=== PATIENT | female | born 1950 | race Asian ===

== ENCOUNTER 2017-07-15 07:02 | Day surgery (SDC) | payer MEDICARE, OTHER ==
[2017-07-14 10:47] VITALS: BMI 25.3
[2017-07-15] MEDS ORDERED: Oxymetazoline HCl 0.05% ( 15 ML ) ONE (09:42)
[2017-07-15 09:53] LABS: Hematocrit 47.4 % (36.0-47.0)
[2017-07-15 10:11] LABS: Anion Gap 11 mmol/L (10-20); BUN (Urea Nitrogen) 15 mg/dL (9.8-20.1); Calc. Creatinine Clearance 62 mL/min (70-130); Calcium 9.4 mg/dL (7.8-10.44); Carbon Dioxide 26 mmol/L (23-31); Chloride 108 mmol/L (98-107); Estimated GFR-MDRD 83
[2017-07-15] MEDS ORDERED: Fentanyl 100 MCG/2 ML VIAL ONE (10:27)
[2017-07-15] MEDS ORDERED: Midazolam HCl 2 mg/2 ml Vial ONE (10:27)
[2017-07-15] MEDS ORDERED: Lidocaine 1% w/Epinephrine 1:200K 30 ML VIAL ONE (10:48)
[2017-07-15] MEDS ORDERED: Propofol 200 MG/20 ML VIAL ONE (15:40)
[2017-07-15] MEDS ORDERED: Lidocaine 1% PF 5 ML VIAL ONE (15:40)
[2017-07-15] MEDS ORDERED: Dexamethasone 20 MG/5 ML VIAL ONE (15:40)
[2017-07-15] MEDS ORDERED: Ondansetron HCl/PF 4 MG/2 ML Vial ONE (15:40)
[2017-07-15] MEDS ORDERED: Glycopyrrolate 0.2 MG/ML 5 ML SYRINGE ONE (15:40)
--- NOTE | 2017-07-16 11:06 | OP ---
PREOPERATIVE DIAGNOSES: 1. Chronic rhinosinusitis. 2. Bilateral inferior turbinate hypertrophy. 3. Right middle turbinate michelle bullosa. POSTOPERATIVE DIAGNOSES: 1. Chronic rhinosinusitis. 2. Bilateral inferior turbinate hypertrophy. 3. Right middle turbinate michelle bullosa. PROCEDURES: 1. Bilateral endoscopic sinus surgery, total ethmoidectomies. 2. Bilateral endoscopic sinus surgery, maxillary antrostomies. 3. Bilateral endoscopic sinus surgery, frontal sinusotomies. 4. Right endoscopic sinus surgery 5. Bilateral inferior turbinate submucosal coblation. SURGEON: Dr. Ganga Baum M.D. ESTIMATED BLOOD LOSS: 20 mL. COMPLICATIONS: None. ANESTHESIA: GETA. PROCEDURE: The patient was taken to the operating room and placed supine on the table. General endo tracheal anesthesia was obtained by the Anesthesia staff. Tube was secured in the left lower lip. T he patient was then placed in the beach chair position, and Afrin pledgets were placed in the nasal c avity, using the 0 degree scope. The patient was then prepped and draped for standard nasal procedur e. Following this, the 0 degree scope was advanced in the nasal cavity. 1% lidocaine with 1:100,000 epinephrine was injected via a 27 gauge needle into the inferior turbinates, middle turbinates, and lateral nasal wall. Following this, a large right middle turbinate michelle bullosa was vertically inc ised with a sickle knife on the anterior aspect. A straight Blakesley forceps was then inserted into the michelle bullosa to expand and further fracture between che. The lateral wall of the michelle bul losa was then resected using the straight Blakesley forceps and straight microdebrider. Following th is, the uncinate using the ball-ended probe. The uncinate was then removed using a microdebrid er and the upbiting Blakesley forceps. Following this, the maxillary sinus ostia was identified with a ball-ended probe and gently widened using the straight microdebrider and straight Blakesley forcep s. Following this, the ethmoidal bulla was identified and was punctured on its medial and inferior a spect and was removed using the microdebrider. The grand lamella was identified and was punctured in to the posterior ethmoidal cells. Working from posterior to anterior, the ethmoidal cells were opene d in a mucosal-sparing technique. Following this, the frontal sinus ostea were visualized using the 45-degree scope and the 40-degree curved microdebrider. The frontal sinus recess and frontal sinus o stia was removed, it was opened using the microdebrider. Following this, the nasal cavity was irriga jessika. MeroPacks were placed within the middle meatus. Following this, the inferior turbinates were t hen punctured on the anterior inferior aspect and submucosal coblation was performed of the anterior inferior aspect of the inferior turbinates bilaterally. Patient tolerated the procedure well.
== END 2017-07-15 12:50 | disposition home or self-care (01) ==
LOC: SDC 07:02
PROVIDERS: ATTEND Otolaryngology Plastic Surgery within the Head & Neck
PROC: 099R8ZZ Drainage of Left Maxillary Sinus, Via Natural or Artificial Opening Endoscopic (ICD-10-PCS; principal; 2017-07-15)
PROC: 099Q8ZZ Drainage of Right Maxillary Sinus, Via Natural or Artificial Opening Endoscopic (ICD-10-PCS; 2017-07-15)
PROC: 09TL8ZZ Resection of Nasal Turbinate, Via Natural or Artificial Opening Endoscopic (ICD-10-PCS; 2017-07-15)
PROC: 09TV8ZZ Resection of Left Ethmoid Sinus, Via Natural or Artificial Opening Endoscopic (ICD-10-PCS; 2017-07-15)
PROC: 09TU8ZZ Resection of Right Ethmoid Sinus, Via Natural or Artificial Opening Endoscopic (ICD-10-PCS; 2017-07-15)
PROC: 09BT4ZZ Excision of Left Frontal Sinus, Percutaneous Endoscopic Approach (ICD-10-PCS; 2017-07-15)
PROC: 09BS4ZZ Excision of Right Frontal Sinus, Percutaneous Endoscopic Approach (ICD-10-PCS; 2017-07-15)
DX: J32.9 Chronic sinusitis, unspecified (principal); J30.9 Allergic rhinitis, unspecified; J34.9 Unspecified disorder of nose and nasal sinuses; J34.3 Hypertrophy of nasal turbinates; Z79.899 Other long term (current) drug therapy; Z79.51 Long term (current) use of inhaled steroids; Z79.01 Long term (current) use of anticoagulants; Z88.8 Allergy status to other drugs, medicaments and biological substances; Z98.890 Other specified postprocedural states
CPT/HCPCS: 80048; 85014; 85018; 93005; 93010; J0131; J1100; J2001; J2250; J2405; J2704; J3010

== ENCOUNTER 2017-07-28 22:52 | Observation (INO) | payer MEDICARE, OTHER ==
[2017-07-28 23:27] LABS: #Basophils 0.1 thou/uL (0.0-0.2); #Eosinphils 0.4 thou/uL (0.0-0.7); #Lymphocytes 2.7 thou/uL (1.20-3.40); #Monocytes 1.4 thou/uL (0.11-0.59); #Neutrophils 7.2 thou/uL (1.40-6.50); %Basophils 0.4 % (0.0-1.0); %Eosinophils 3.1 % (0.0-10.0); %Lymphocytes 23.2 % (21.0-51.0); Hematocrit 40.7 % (36.0-47.0); Red Blood Cell (RBC) Count 4.42 mill/uL (4.20-5.40); White Blood Cell (WBC) Count 11.7 thou/uL (4.8-10.8)
[2017-07-28 23:36] LABS: PTT 33.4 SEC (22.9-36.1); Prothrombin Time 13.5 SEC (12.0-14.7)
[2017-07-28] MEDS ORDERED: Acetaminophen 500 MG TAB ONE (23:44)
[2017-07-28 23:48] LABS: ALT (SGPT) 35 U/L (8-55); AST (SGOT) 19 U/L (5-34); Alkaline Phosphatase 220 U/L (40-150); Anion Gap 13 mmol/L (10-20); BUN (Urea Nitrogen) 13 mg/dL (9.8-20.1); Bilirubin, Total 0.5 mg/dL (0.2-1.2); Calc. Creatinine Clearance 0 mL/min (70-130); Calcium 9.2 mg/dL (7.8-10.44); Carbon Dioxide 25 mmol/L (23-31); Chloride 106 mmol/L (98-107); Estimated GFR-MDRD 77; Protein, Total 7.9 g/dL (6.0-8.3)
[2017-07-29] MEDS ORDERED: Morphine 4 MG/ML VIAL SLOW IVP PRN (02:20)
[2017-07-29] MEDS ORDERED: Ondansetron HCl/PF 4 MG/2 ML Vial IVP PRN ×2 (02:21→08:39)
[2017-07-29] MEDS ORDERED: Acetaminophen 325 MG TAB PO PRN ×2 (02:21→08:39)
[2017-07-29] MEDS ORDERED: Ondansetron ODT 4 MG TAB SL PRN (02:21)
[2017-07-29 03:01] VITALS: BMI 23.3
[2017-07-29] MEDS ORDERED: Sodium Chloride 0.65% Nasal 44 ML BOT L NARE PRN (03:40)
[2017-07-29 06:17] LABS: Hematocrit 37.4 % (36.0-47.0)
[2017-07-29 07:55] VITALS: BP 143/67; TEMP 98
--- NOTE | 2017-07-29 08:19 | CON ---
DATE OF CONSULTATION: 07/29/2017 REASON FOR CONSULTATION: Epistaxis. CONSULTING PHYSICIAN: Dr. Astrid Hodges. HISTORY OF PRESENT ILLNESS: Ms. Pulido is a 67-year-old female who is status post nasal surgery on the . She was unable to tell me exactly what was performed during that surgery other than it wa s some sinus surgery for chronic infection. She was on Eliquis prior to the surgery for atrial fibri llation and stopped it before the surgery and for a week afterwards, but towards the end of last week , started back on her Eliquis and started having epistaxis. She presented to the ER this morning wit h epistaxis and had a pack placed in the right nostril. She presented again to the ER this evening w ith the packing in place and continued bleeding around it and was transferred here for further evalua tion and treatment. She complains of pain. She denies any fever, vision problems, or blood going do wn the back of throat. Please see her admission ER notes for further details for past medical histor y and review of systems as reviewed on this date. PHYSICAL EXAMINATION: HEENT: She has a packing in place and inflated in the right naris with some blood and mucus weeping around the packing. No adenike bleeding was noted. On the left side, she had some combination of bloo d and mucus that was suctioned clear, no active bleeding was noted. Oral cavity and oropharynx showe d a little bit of blood staining in the throat, but no active bleeding was noted in the throat. ASSESSMENT AND PLAN: I recommended observation overnight since she travelled such a distance to get here and we will have Dr. Baum see her in the morning to determine if he wants to do any further tr eatment. Meanwhile, continue off the Eliquis to keep her head elevated, avoid blowing her nose, snee zes with her mouth open. Put her on Augmentin to try and prevent infection from the packing and sali ne spray in the left nostril to keep it clean after and as needed and controlled her pain with pain m edications. FOLLOWUP: We will have Dr. Baum to see her in the morning and determine further treatment.
[2017-07-29] MEDS ORDERED: Ondansetron ODT 4 MG TAB PO PRN (08:39)
[2017-07-29] MEDS ORDERED: Loratadine 10 MG TAB PO PRN (08:39)
[2017-07-29] MEDS ORDERED: hydrALAZINE 20 MG/ML VIAL SLOW IVP PRN (08:39)
[2017-07-29] MEDS ORDERED: Zolpidem Tartrate 5 MG TAB PO PRN (08:39)
[2017-07-29] MEDS ORDERED: Milk Of Magnesia 30 ML UDCUP PO PRN (08:39)
[2017-07-29] MEDS ORDERED: Diabetic Tussin 200 MG/10 ML UDCUP PO PRN (08:39)
[2017-07-29] MEDS ORDERED: Mag-Al 1200 mg/1200 mg/30 ML UDCUP PO PRN (08:39)
[2017-07-29] MEDS ORDERED: Loperamide HCl 2 MG CAP PO PRN (08:39)
[2017-07-29] MEDS ORDERED: Artificial Tears 18 DROP/0.9 ML EA EYE PRN (08:39)
[2017-07-29] MEDS ORDERED: HYDROcodone/Acetaminophen 5/325 mg Tablet PO PRN (08:39)
[2017-07-29] MEDS ORDERED: Chloraseptic Spray 180 ml Bottle PO PRN (08:39)
[2017-07-29] MEDS ORDERED: Senokot 8.6 MG TAB PO PRN (08:39)
[2017-07-29] MEDS ORDERED: Sodium Chloride 0.65% Nasal 44 ML BOT EA NARE PRN (08:39)
[2017-07-29] MEDS ORDERED: Eucerin (Mineral Oil/Petrolatum,White) 30 gm Jar TOP PRN (08:39)
[2017-07-29] MEDS ORDERED: METOPROLOL SUCCINATE PO SCH (09:00)
[2017-07-29] MEDS ORDERED: Losartan 25 MG TAB PO SCH (09:00)
[2017-07-29] MEDS ORDERED: Amoxicillin/Potassium Clav 875 MG TAB PO SCH ×3 (09:00)
[2017-07-29] MEDS ORDERED: Fluticasone Propionate Nasal Spray 16 gm Bottle NASAL SCH (09:00)
[2017-07-29] MEDS ORDERED: Non-Formulary Item 1 EACH (Azelastine Hcl [Azelastine Hcl 0.15% Nasal Spray] 2 SPRAY) INH SCH (09:00)
[2017-07-29] MEDS ORDERED: FLU VACC TS2017-18 (>65YR) 0.5 ML SYRINGE IM ONE (09:00)
[2017-07-29] MEDS ORDERED: PANTOPRAZOLE SODIUM PO SCH (09:00)
[2017-07-29] MEDS ORDERED: methylPREDNISolone Acetate 40 mg/ml Vial IM SCH (10:30)
--- NOTE | 2017-07-29 13:19 | SS ---
DATE OF ADMISSION: 07/29/2017 at 1:00 a.m. DATE OF DISCHARGE: 07/29/2017 at 11:52 a.m. PRIMARY CARE PHYSICIAN: Linda Shah M.D. PRIMARY ENT: Ganga Baum M.D. PRIMARY DISCHARGE DIAGNOSIS: Epistaxis, likely due to anticoagulation with Eliquis, resolved. SECONDARY DISCHARGE DIAGNOSES: Dyslipidemia, chronic sinusitis, hypertension, gastroesophageal reflu x disease. PRIMARY PROCEDURES/OPERATION: Nasal packing. RADIOLOGICAL INVESTIGATION: None. SIGNIFICANT LABORATORY: WBC 11.7, hemoglobin 13.2, platelets 350. Hemoglobin 12.1 on discharge. IN R 1.0. Sodium 140, potassium 3.7, chloride 106, carbon dioxide 25, anion gap 13, BUN 13, creatinine 0.75, glucose 118, calcium 9.2. LFT: AST 19, ALT 35, alkaline phosphatase 220, albumin 3.9. DISCHARGE MEDICATIONS: Patient is advised to hold Eliquis up until seen by ENT doctor coming Thursday and then ENT doctor will decide to start Eliquis therapy, but at this point, we advised her to stop E liquis therapy. The patient will continue following medication Augmentin 500 mg t.i.d., Lipitor 20 m g p.o. at bedtime, azelastine nasal spray b.i.d., Flonase nasal spray b.i.d., Cozaar 50 mg p.o. at be dtime, Toprol-XL 100 mg p.o. daily, Protonix 40 mg p.o. daily. CONTRAINDICATIONS: None. CODE STATUS: FULL CODE. INPATIENT CONSULTANTS: Dr. Anthony Turk saw this patient in the emergency room and subsequently Dr Mikel Baum also saw this patient and both recommended to be stable for discharge after nasal pac rosa and Dr. Ganga Baum will see this patient at [facility] on this Thursday. TEST RESULTS PENDING ON DISCHARGE: None. ALLERGIES: No known drug allergies. The patient does not have any true penicillin allergy. DISCHARGE PLAN: Post hospital, the patient will follow up with primary care physician and Dr. Ganga Baum on this Thursday at [facility]. HOSPITAL COURSE WITH HISTORY AND PHYSICAL EXAMINATION. A 67-year-old female who has chronic sinusiti s, and she had a surgical procedure by Dr. aGnga Baum on 07/15/2017 for chronic sinusitis. The pa tient underwent coblation of turbinates. The patient was advised to be on hold for Eliquis therapy f or at least 1 week. The patient did not have any further bleeding. Patient started Eliquis therapy on 07/23/2017. Subsequently, patient had 1 or 2 time epistaxis on Thursday and Thursday, but it was se lf-resolving. On Thursday, the patient had very minor amount of epistaxis, but she was thinking that t his is normal after surgical procedure and she already taking Eliquis therapy. Yesterday, Thursday, tre rubin was having bleeding and that is why she went to see primary care physician who advised her to go to a local emergency room where initially packing was done, but packing was not done on a good way that is why she was having persistent epistaxis and she required another visit in the emergency room . The patient had nasal packing done and subsequently she was transferred to our emergency room for ENT evaluation. Dr. Anthony Turk saw this patient and at this point, her bleeding stopped and he r ecommended to stop Eliquis therapy until cleared by ENT further. Patient was also continued with Aug mentin therapy to prevent infection. The patient was admitted after midnight in hospital, we observed with H&H and she did not have any fu rther bleeding. Her H&H remained stable. Next day, I spoke with Dr. Ganga Baum, who advised her to go home with follow up with him at [facility] on this coming Thursday. At this point, she has n tegan packing in place and is not bleeding anymore. PAST MEDICAL HISTORY: Chronic low back pain, chronic bursitis, chronic shoulder pain, chronic bronch itis, paroxysmal atrial fibrillation on chronic anticoagulation, hypertension, gastroesophageal reflu x disease, chronic sinusitis, paroxysmal atrial fibrillation. PAST SURGICAL HISTORY: Sinus surgery on 07/15/2017, tonsillectomy. PAST PSYCHIATRIC HISTORY: Reviewed and negative. SOCIAL HISTORY: The patient is . Her is present at bedside. No history of tobacco, alcohol or illicit drug abuse. FAMILY HISTORY: Positive for heart disease, diabetes, hypertension among several family members. ALLERGIES: No known drug allergies. CURRENT HOME MEDICATION: Please see above, her discharge home medication. Patient was taking those medications exactly before coming to the hospital along with Eliquis therapy. EMERGENCY ROOM COURSE: Reviewed. PHYSICAL EXAMINATION: VITAL SIGNS: Currently, blood pressure 136/69, pulse 71, respiratory rate 16, saturation 95% on room air, temperature 98.5, weight 51 kilograms. GENERAL: The patient is currently alert, oriented, no acute distress. HEAD: Normocephalic, atraumatic. EYES: Pupils round, reactive to light. Extraocular muscle intact. ENT: Oropharynx within normal limits. Moist mucous membranes. Oropharynx within normal limits. Geoffrey saldana does have nasal packing on the right naris. NECK: No JVD, no thyromegaly, no carotid bruits. LUNGS: Clear to auscultation without any rhonchi or rales. CARDIAC: S1, S2 regular. No murmur, no gallop, no rub. ABDOMEN: Soft and benign without any tenderness. EXTREMITIES: No edema. NEUROLOGIC: Nonfocal examination. Overall, the patient is medically stable for discharge today. The patient is seen and examined today and patient was admitted and discharged on the same day.
[2017-07-29] MEDS ORDERED: Non-Formulary Item 1 EACH (Losartan Potassium [Cozaar] 1 TAB) PO SCH (21:00)
[2017-07-29] MEDS ORDERED: Azelastine 137 MCG/Spray 30 ML NS SCH (21:00)
[2017-07-29] MEDS ORDERED: Atorvastatin Calcium 20 MG TAB PO SCH (21:00)
--- NOTE | 2017-08-04 05:58 | HP ---
DATE OF ADMISSION: 07/29/2017 HISTORY OF PRESENT ILLNESS: The patient was transferred from outside facility. The patient had no e ndoscopic sinus surgery, has been on Eliquis, this is approximately 1 week ago. She just recently st arted her Eliquis and noticed to have bleeding from right side, started on Thursday. She was evaluated at outside emergency room on Thursday and a right nasal pack was placed. Since that time, she has mccauley d no bleeding. She has stopped her Eliquis since that time, otherwise she is recovering uneventfully from her sinus procedure. PAST MEDICAL HISTORY: Cardiovascular disease, coronary artery disease. PAST SURGICAL HISTORY: Recent endoscopic sinus surgery. SOCIAL HISTORY: Noncontributory. FAMILY HISTORY: None. PHYSICAL EXAMINATION: VITAL SIGNS: Stable, afebrile GENERAL: The patient is resting comfortably in bed. HEENT: She has nasal pack placed in the right side. No active bleeding. EARS: TMs intact. Middle ear is well aerated. LABORATORY DATA: Hemoglobins are 12.5 and 12.1. ASSESSMENT AND PLAN: Postoperative epistaxis, unsure what is exact etiology at this point. However, we are going to continue her nasal pack until Thursday, at which time we remove the pack. In the mean time, she will be discharged on oral antibiotics and oral pain medicines.
== END 2017-07-29 11:52 | disposition home or self-care (01) ==
LOC: ERS 22:52 → 2SW 07-29 00:52
PROVIDERS: ADMIT Internal Medicine; ATTEND Internal Medicine
DX: R04.0 Epistaxis (principal); J32.9 Chronic sinusitis, unspecified; E78.5 Hyperlipidemia, unspecified; I10 Essential (primary) hypertension; I25.10 Atherosclerotic heart disease of native coronary artery without angina pectoris; K21.9 Gastro-esophageal reflux disease without esophagitis; Z88.0 Allergy status to penicillin; Z79.01 Long term (current) use of anticoagulants; Z98.890 Other specified postprocedural states
CPT/HCPCS: 80053; 85014; 85018; 85025; 85610; 85730; 96372; 99285; G0378; 36415; A4216; J1030